=== PATIENT | male | born 1975 | race Caucasian/White ===

== ENCOUNTER 2023-06-17 10:09 | Outpatient (CLI) | payer OTHER, SELFPAY | END 2023-06-17 10:10 | disposition home or self-care (01) | PROVIDERS: PCP Family Medicine; Visit Provider Family Medicine | DX: Z00.00 Encounter for general adult medical examination without abnormal findings (principal); I10 Essential (primary) hypertension; Z13.6 Encounter for screening for cardiovascular disorders; Z12.5 Encounter for screening for malignant neoplasm of prostate | CPT/HCPCS: 80061; 84153 ==

== ENCOUNTER 2024-07-19 08:17 | Outpatient (CLI) | payer OTHER, SELFPAY | END 2024-07-19 08:18 | disposition home or self-care (01) | LOC: NFLDREF 07-26 23:18 | PROVIDERS: PCP Family Medicine; Referring Provider Family Medicine; Visit Provider Family Medicine | DX: E78.5 Hyperlipidemia, unspecified (principal); I10 Essential (primary) hypertension | CPT/HCPCS: 80053; 80061 ==

== ENCOUNTER 2024-07-20 15:17 | Outpatient (RCR) | payer OTHER, SELFPAY ==
--- NOTE | 2024-07-20 16:55 | OT.OPOE ---
OT Outpatient Ortho Eval OT Outpatient Ortho Eval* Start: 07/20/24 08:58 Freq: Status: Active Protocol: Document 07/20/24 08:58 ALLAN (Rec: 07/20/24 16:52 ALLAN [id number]) E-signed By Selena Cyr, OTR/L, CLT OT OP Ortho Eval Details Complexity Complexity Medium Insurance Information Other Insurance UMR Patient Choice Outpatient History/Precautions Current Condition/Medical Diagnosis Referring Provider Dr. Familia Martin Medical Diagnoses Carpal Tunnel Syndrome, G56.00 Lesion of the Ulnar Nerve, G56 .21 Treatment Diagnosis Paresthesia, R20.2 R hand weakness R53.1 Date of Onset May 2024 Other Precautions *Of note: In the past, he did have significant spinal stenosis with radicular pain into the right arm in the past and he did have steroid injection in the neck. That seemed to have taking care of symptoms for >1 year. Patient has an EMG next week and will follow up with Ortho (Dr. Rubio) afterwards. Medical Conditions HTN,Arthritis Other Conditions Cubital tunnel syndrome on right (Acute)-G56.21 - Lesion of ulnar nerve, right upper limb (ICD-10) Carpal tunnel syndrome (Acute) - G56.00 - Carpal tunnel syndrome, unspecified upper limb (ICD-10) Hyperlipidemia (Acute)-E78.5 - Hyperlipidemia, unspecified ( ICD-10) Hypertension (Acute) -I10 - Essential (primary) hypertension (ICD-10) Cervical spinal stenosis ( Acute) Left arm radicular pain M48.02 - Spinal stenosis, cervical region (ICD-10) Radiculopathy Obesity (Acute)- E66.9 - Obesity, unspecified (ICD-10) Family history of amyloidosis (Acute): Father -Z83.49 - Family history of other endocrine, nutritional and metabolic diseases (ICD-10) Medical/Functional History Medical History Reviewed Yes Prior Level of Function/Mobility Indep with Self Cares/IADLs, 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 He has 2 adult aged children Social History Employment Status Riveting Machine Operator [employer] Employed Current Occupation Patient works in [employer] for [employer] in [email or web address] Hobbies fishing, hunting Ortho Subjective Subjective Subjective 49 year old R hand dominant male patient was seen by Dr. Familia Martin and referred to OT with the medical dx's of: Lesion of the Ulnar Nerve, G56 .21 & Carpal Tunnel Syndrome, G56.00. Patient presented to the family medicine clinic on 07/15/24 with chief complaint of ongoing right hand pain, he states he has had this since May 2024 and relates his symptoms starting after a hunting trip he took [employer]. Ever since then he has had numbness tingling sensation to his thumb, index finger middle finger, inside of the ring finger, he also states he has lost some dexterity and feels he has a weaker metal checker. He had no history of any recent trauma/ injury to the R UE. Of note: In the past, he did have significant spinal stenosis with radicular pain into the right arm in the past and he did have steroid injection in the neck. That seemed to have taking care of symptoms for > 1 year. He states that he has a self cervical traction device at home but hasn't been using it. No reported pain in the R UE. R UE has full AROM, tightness in the R flexor group of the forearm. Patient has never had therapy for this issue prior to our session today. Pain Assessment Pain Pain No Hand Pinch/Lay Out Machine Operator Strength Hand Pinch/Lay Out Machine Operator Strength Hand Pinch/Lay Out Machine Operator Strength Left Hand,Right Hand Left Hand Lay Out Machine Operator Strength Position 1 in Elbow 113 Flexion (lbs) Lay Out Machine Operator Strength Position 2 in Elbow 100 Extension (lbs) Lateral Pinch Strength (lbs) 23 Three Point Pinch (lbs) 21 Tip Pinch Strength (lbs) 18 Right Hand Lay Out Machine Operator Strength Position 1 in Elbow 110 Flexion (lbs) Lay Out Machine Operator Strength Position 2 in Elbow 95 Extension (lbs) Lateral Pinch Strength (lbs) 21 Three Point Pinch (lbs) 19 Tip Pinch Strength (lbs) 17 Comments Comments Considering that patient is R hand dominant, and the dominant UE is usually 10% stronger than the non dominant side-it is believed that patient has some loss of strength in the R UE. Patient also notes dropping items out of his R hand and feeling uncoordinated. Upper Extremity Special Tests Upper Extremity Special Tests Comments Comments On examination he has a positive Phalen's & Tinel's test of the affected right side. Diminished 2 point discrimination when comparing the right the left hand. Did not find any issues with the Ulnar nerve on Exam on EVAL , patient denies any issues with the little and ring finger of the R hand. OT Problems Problems Problems Decreased Strength,Decreased Dexterity,Decreased Coordination,Sensory Sensitivity,Lifting,Gripping, Pinching Problems Comments can at times wake up in the middle of the night from the tingling/numbness in the R wrist/hand Other Problems Writing,Opening Containers, Computer,Sleeping Patient Potential Good Assessment Assessment Assessment 49 year old R hand dominant male patient was seen by Dr. Familia Martin and referred to OT with the medical dx's of: Lesion of the Ulnar Nerve, G56 .21 & Carpal Tunnel Syndrome, G56.00. Patient presented to the family medicine clinic on 07/15/24 with chief complaint of ongoing right hand pain, he states he has had this since May 2024 and relates his symptoms starting after a hunting trip he took [employer]. Ever since then he has had numbness tingling sensation to his thumb, index finger middle finger, inside of the ring finger, he also states he has lost some dexterity and feels he has a weaker metal checker. He had no history of any recent trauma/ injury to the R UE. Of note: In the past, he did have significant spinal stenosis with radicular pain into the right arm in the past and he did have steroid injection in the neck. That seemed to have taking care of symptoms for > 1 year. He states that he has a self cervical traction device at home but hasn't been using it. No reported pain in the R UE. R UE has full AROM, tightness in the R flexor group of the forearm. Patient has never had therapy for this issue prior to our session today. Considering that patient is R hand dominant, and the dominant UE is usually 10% stronger than the non dominant side-it is believed that patient has some loss of strength in the R UE. Patient also notes dropping items out of his R hand and feeling uncoordinated. (See grid above for metal checker/pinch strengths). On examination he has a positive Phalen's & Tinel's test of the affected right side. Diminished, light touch & 2 point discrimination when comparing the right the left hand. Did not find any issues with the Ulnar nerve on Exam on EVAL 07/20/24, patient denies any issues with the little and ring finger of the R hand. Patient does not report worse/increased symptoms at any certain time of day-consistent throughout the day. He currently is not wearing a R wrist brace, therapist is encouraging this, he can purchase a L/XL off [employer] for $13, should wear this every night to keep his wrist in neutral and can be worn during the day when doing activities that would have his wrist in flexion. Patient verbalized his understanding of this information. Showed/ taught his stretches that promote wrist extension and stretch the flexor group, encouraging massage of the R forearm flexor group, gave patient a double taped tennis ball that he can use to self mob/massage/stretch his forearm. PLAN: Instruction of home program with verbal and written instructions; Ergonomics, body mechanics; Splint don/doff/ wearing schedule and hygiene; Education on CTS, basic anatomy and causes of compression; Pt will be referred back to referring physician/surgeon should symptoms persist or worsen. Patient is agreeable to the plan and motivated to make progress. Patient has a scheduled EMG next week with f /u with Dr. Rubio (Ortho provider) 1 week following that apt. Occupational Therapy Treatment Plan - OP Potential Rehabilitation Potential Good Barriers Barriers to goal attainment None noted Set Goals Goals Set with Patient Yes Goals Goals 1. Patient will have a decrease in score on the [place] Hand Questionnaire ( lower score =less impairment). STG-within 30 days 2.. Patient will report resolution of paresthesias and /or pain to affected R ( dominant) hand. STG-within 30 days 3. Patient upon discharge from therapy will be independent with home program and have returned to their premorbid level of function-LTG within 8 weeks Target Date 8 weeks Treatment Plan Treatment Plan Evaluation,Edema Control, Iontophoresis,Joint Mobilization,Manual Therapy, Ultrasound,Therapeutic Exercise,Therapeutic Activities,Self Care/Home Management,Education Expected Frequency As Needed Expected Duration 12 Home Program Home Program Home Program Initiated Home Program Specifics Forearm flexor massage, mobs with double taped tennis balls Prayer stretch, LOTS of stretching, promoting wrist extension Scapular Retraction and Rowing Patient to use his traction device at home and begin wearing the R wrist brace Certification Certification Statement I Certify That: Therapy Services Provided, Therapy Plan Established, Therapy Plan Reviewed Certification Information Clinic ID # [id number] Initial Certification Date 07/20/24 Recertification Due Date 10/18/24 Provider Signature Required Yes Provider Signature Shows Agreement With POC & Medical Necessity Physician NPI Number Write NPI# Here Physician Comment/Change Comment or Changes Physician Signature & Date Requested Please Sign/Date Here
== END 2024-10-14 09:31 | disposition home or self-care (01) ==
PROVIDERS: PCP Family Medicine; Visit Provider Family Medicine
DX: G56.21 Lesion of ulnar nerve, right upper limb (principal); G56.00 Carpal tunnel syndrome, unspecified upper limb; Z51.89 Encounter for other specified aftercare
CPT/HCPCS: 97110; 97166; X5282

== ENCOUNTER 2024-08-16 06:16 | Day surgery (SDC) | payer OTHER, SELFPAY ==
[2024-08-16] VITALS (10 sets, daily range): BP systolic 141–151; BP diastolic 85–105; PULSE 69–84; RESP 14–16; TEMP 36.1; O2SAT 96–98; BMI 36.2
--- OUTSIDE RECORDS SUMMARY | 2024-08-16 06:18 | XMS_ITS | Clinical Summary ---
Author Organization [facility] Address [place], [place] [address] Care Team Providers Care Coiler Name Role Phone No, Pcp Primary Care Provider Unavailabl e Allergies No known active allergies Medications ibuprofen (ADVIL; MOTRIN) 200 mg tablet Take 1 tablet by mouth 4 times daily if needed. 0 01/10/2011 Active Active Problems Problem Noted Date Diagnosed Date Nonallopathic lesion of lumb ar region, not elsewhere classified 02/26/2008 Lumbago 02/26/2008 Spasm of muscle 02/26/2008 Unspecified hypertrophic and atrophic condition of skin 10/26/2007 Immunizations Name Administration Dates Next Due Influenza, IIV3 (Age >=3 years) 04/07/2009 Tdap 11/05/2007 Family History Medical History Relation Name Comments Diabetes Other Relation Name Status Comments Other Social History Tobacco Use Types Packs/Day Years Used Date Smoking Tobacco: Never Smokeless Tobacco: Never Alcohol Use Standard Drinks/Week Comments Yes 0.8 (1 standard drink = 0.6 oz p ure alcohol) Sex and Gender Information Value Date Recorded Sex Assigned at Not on file 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 Gender Identity Not on file Sexual Orientation Not on file Occupation Industry Job Start Date Job End Date Not on file Not on file Not on file Not on file Obstetrics History Last Filed Vital Signs Vital Sign Reading Time Taken Comments Blood Pressure 128/76 01/10/2011 10:36 AM CDT Pulse 82 01/10/2011 10:36 AM CDT Temperature 36.3 C (97.4 F) 01/10/2011 10:36 AM CDT Respiratory Rate 16 11/05/2007 2:33 PM CDT Oxygen Saturation - - Inhaled Oxygen Concentration - - Weight 127 kg (280 lb) 01/10/2011 10:36 AM CDT Height 189.2 cm (6' 2.5) 11/05/2007 2:33 PM CDT Body Mass Index 35.47 11/05/2007 2:33 PM CDT Plan of Treatment Health Maintenance Due Date Last Done Comments Depression screening for age 12+ 1988 HIV for age 15-65 02/08/1991 BMI (ht and wt on same day) for age 18+ 02/08/1994 Hepatitis C screening for ag e 18-79 02/08/1994 Tetanus booster 11/04/2017 11/05/2007 Colonoscopy through age 75 02/08/2021 Lipids for age 45-75 02/08/2021 11/14/2007 COVID-19 vaccine series (2023- season) 2024 Influenza for age 9-49 03/07/2024 04/07/2009 Tdap Completed 11/05/2007 Pneumococcal series for age 6-49 Aged Out No longer eligible based on patient's age to complete this topic Procedures Procedure Name Priority Date/Time Associated Diagnosis Comments LIPID PANEL Routine 11/14/2007 9:51 AM CDT Screening Lipid Disorders from Last 3 Months or Most Recently Relevant to Health Maintenance Results * (ABNORMAL) LIPID PANEL (11/14/2007 9:51 AM CDT) CHOLESTEROL,TOTAL 193 110 - 199 mg/dL [facility] TRIGLYCERIDES 82 40 - 149 mg/dL [facility] HDL CHOLESTEROL 42 >40 mg/dL [facility] CHOL/HDL RATIO 4.59(H) <4.51 [facility] LDL CHOLESTEROL 135(H) <131 mg/dL [facility] PATIENT STATUS Fasting [facility] Blood specimen (specimen) BLOOD SPECIMEN / Unknown 11/14/2007 9:51 AM CDT 11/14/2007 9:50 AM CDT us Efe Herrera MD CHEMISTRY Final R esult [facility] INTERNAL ZIP [id number] [id number] from Last 3 Months or Most Recently Relevant to Health Maintenance Insurance [facility] Care Teams Coiler Relationship Specialty Start Date End Date NO, PCP PCP - General 10/17/16
--- OUTSIDE RECORDS SUMMARY | 2024-08-16 06:18 | XMS_ITS | Clinical Summary ---
Author Organization [facility] Address [address] , [address] [place] [address] Phone Care Team Providers Care Endocrinology Teacher Name Role Phone [facility] Unavailable Unava ilable Conditions or Problems Problem Name Problem Code Onset Date Status Entry Date Provider Comment Standard Description Annotate Hand numbness 032726205 (SNOMED CT) Active Jasper Alexander MD Numbness of hand Median neuropathy, right 507123021 (SNOMED CT) Active Jasper Alexander MD Median neuropathy Medications No information available. Medications Administered No information available. Allergies, Adverse Reactions, Alerts No information available. Results Date Name Value Unit Range Flag Description Internal Other: Authorizatio n AUTHBENEFIT Yes Authoriza tion: Assignment of Benefits and Payment Agreement [email or web address] Yes Authorizat ion: Authorization for [facility] to leave messages, voicemail, send text messages, send emails AUTHRELHCARE Yes Authoriz ation: Release/Retrieval of Information to/from Healthcare Facilities, Pharmacy Benefit Payers and Providers ROIAUTHOTHER Yes Authoriz ation: Release of Information - Authorize Others/Insurance - Payment and Healthcare Operations [email or web address] Yes Authoriza tion: Release of Information - Authorize [facility] - Payment and Healthcare Operations AUTHPRIVPRAC Yes Authoriz ation: Notice of privacy practices HIECONSENT Yes Consent To Release information to the Health Information Exchange (HIE) Internal Other: Verbal Autho rization/Emergency Contact VERBAL_EMER Done Verbal au thorization and emergency contact Plan of Care No information available. Procedures Code Procedure Name Date Entry Date CPT-99033 Nerve Conduction 7-8 studies CPT-30132 EMG with NCS (5+ muscles) - 1 limb 07/29 Vital Signs No information available. Immunizations No information available. Advance Directives No information available.
--- OUTSIDE RECORDS SUMMARY | 2024-08-16 06:19 | XMS_ITS ---
Author Organization [facility] Address [address] , [address] [place] [address] Phone Care Team Providers Care Meteorological Aide Name Role Phone Jasper Alexander MD Conditions or Problems Problem Name Problem Code Onset Date Status Entry Date Provider Comment Standard Description Annotate Hand numbness 181193139 (SNOMED CT) Active Jasper Alexander MD Numbness of hand Median neuropathy, right 889713725 (SNOMED CT) Active Jasper Alexander MD Median neuropathy Medications No information available. Medications Administered No information available. Allergies, Adverse Reactions, Alerts No information available. Results No information available. Plan of Care No information available. Procedures Code Procedure Name Date Entry Date CPT-71986 Nerve Conduction 7-8 studies CPT-61111 EMG with NCS (5+ muscles) - 1 limb 07/29 Vital Signs No information available. Immunizations No information available. Advance Directives No information available.
[2024-08-16] MEDS: ETHYL CHLORIDE 1 APPLICATION 1 APPLIC TOPICAL (07:00)
[2024-08-16] MEDS: BUPIVACAINE 0.5% 30 ML INJECTION (07:00)
[2024-08-16] MEDS: LIDOCAINE 1%-EPI 1:100,000 20 ML INFILTRATI (07:00)
--- NOTE | 2024-08-16 07:10 | SUR.PREOP ---
SAME DAY SURGERY LOCAL INJECTION SITE VERIFICATION WAS PERFORMED BY SURGEON/PA AND PATIENT PRIOR TO LOCAL ANESTHETIC BEING INJECTED TO OPERATIVE SITE.
--- NOTE | 2024-08-16 07:32 | P.ORPRC_ITS ---
Procedure Note Date of procedure: 08/16/24 Procedure: PREOPERATIVE DIAGNOSIS: 1. Right carpal tunnel syndrome 2. Right index finger dorsal benign mass POSTOPERATIVE DIAGNOSIS: 1. Right carpal tunnel syndrome 2. Right index finger dorsal benign mass PROCEDURE: 1. Right open carpal tunnel release 2. Right index finger dorsal benign mass open excision SURGEON: Bear Rubio MD. INSOLE TAPE STITCHER UCO: OZZIE Rincon ANESTHESIA: Local anesthetic (50:50 mixture of 2% lidocaine with epi and 0.5% marcaine plain) - 10ml total (60% of it delivered into the palmar base for the carpal tunnel and 40% into the dorsal aspect of the index finger base for the mass excision). IMPLANTS: None EBL: 2 mL TOURNIQUET: None COMPLICATIONS: None evident INDICATIONS: The patient is a pleasant 41-year-old male who has experienced right hand numbess/tingling affecting the radial 3.5 digits for multiple months. It has progressively gotten worse. In addition, a mass has been noted over the dorsal aspect of the right index finger. It has grown in size slowly over time/months. However, it does bother him when he strikes it against the firm object. For both scenarios nonoperative management has been tried and failed, and therefore surgery was recommended. DESCRIPTION OF PROCEDURE: Following a thorough discussion of risks, benefits, and alternatives consent was obtained and the operative extremity was marked. The patient was brought to the operating room and placed supine on the operating table. Local anesthesia induction was undertaken in preop holding. No antibiotics were administered as this was planned to be a local case only. Proper time-out was performed identifying proper patient, site, and procedure. The operative extremity was prepped and draped in the appropriate sterile fashion using ChloraPrep. An incision was made in line with the radial border of the ring finger beginning 1 cm distal to the distal wrist crease and progressing for another 2.5cm distal. Caution was taken to stay proximal to Rios's cardinal line. Sharp incision through the skin, subcutaneous tissue, and palmar fascia was performed. The thenar musculature was bluntly elevated off the transverse carpal ligament. The ligament was directly visualized, and divided sharply with a 15 blade. This was released from its most proximal to the most distal extent. Metzenbaum scissor was also utilized to release the fascia extension proximally. We confirmed complete release of the transverse carpal ligament. Thereafter, attention was turned to the right dorsal index finger benign mass open excision. Mass was palpated over the dorsal aspect of the proximal phalanx. Initially, it was incised directly overlying this, but it appeared to have intimacy with dermis and epidermis. Therefore, it was ellipsed out. Complete excision was achieved. By the way, the ellipse was performed with a derma blade than that which had divided the tissue. The underlying dermis was undermined to allow more tissue mobility. Thorough irrigation normal saline was again performed. Closure was then performed with 4-O nylon in interrupted fashion. Soft dressings were applied, and the patient was transferred to the recovery room in stable condition. PLAN: 1. Encourage elevation of the operative extremity. 2. Range of motion of the fingers and hand/wrist as tolerated. 3. Ibuprofen/acetaminophen and/or oxycodone as needed for pain control. 4. Follow up with PA visit or nurse visit in 12-16 days for wound check and suture removal.
[2024-08-16] MEDS: BACITRACIN OINTMENT BULK TUBE 1 APPLIC TOPICAL (07:40)
== END 2024-08-16 08:07 | disposition home or self-care (01) ==
LOC: OR 06:17
PROVIDERS: PCP Family Medicine; Visit Provider Orthopaedic Surgery Sports Medicine
PROC: (CPT 64721; principal; 2024-08-16 07:15)
PROC: (CPT 64721; 2024-08-16 07:15)
DX: G56.01 Carpal tunnel syndrome, right upper limb (principal); R22.31 Localized swelling, mass and lump, right upper limb; D21.9 Benign neoplasm of connective and other soft tissue, unspecified
CPT/HCPCS: 64721; 11422; 88305; J0665

== ENCOUNTER 2025-06-27 08:22 | Outpatient (CLI) | payer OTHER, SELFPAY | END 2025-06-27 08:23 | disposition home or self-care (01) | PROVIDERS: PCP Family Medicine; Visit Provider Family Medicine | DX: E78.00 Pure hypercholesterolemia, unspecified (principal); I10 Essential (primary) hypertension; Z12.5 Encounter for screening for malignant neoplasm of prostate | CPT/HCPCS: 80053; 80061; G0103 ==